=== PATIENT | female | born 1990 | race American Indian/Alaskan Native ===

== ENCOUNTER 2017-07-14 14:34 | Emergency (ER) | payer OTHER ==
[2017-07-14 15:13] VITALS: TEMP 98.4
[2017-07-14] MEDS ORDERED: Sodium Chloride 0.9% 1,000 ML IV ONE (16:07)
[2017-07-14 16:59] LABS: BASO % 0.5 % (0.0-2.0); EOS # 0.1 K/uL (0.0-0.7); EOS % 1.4 % (0.0-4.0); HEMOGLOBIN 12.4 g/dL (11.0-16.0); LYMPH # 3.3 K/uL (1.0-4.3); LYMPH % 37.7 % (20.0-40.0); MEAN CELL VOLUME 80.1 fL (81.0-99.0); MEAN CORPUSCULAR HEMOGLOBIN 28.7 pg (27.0-31.0); MEAN CORPUSCULAR HGB CONC 35.8 g/dL (33.0-37.0); MEAN PLATELET VOLUME 8.5 fL (7.2-11.7); MONO # 0.4 K/uL (0.0-0.8); MONO % 4.9 % (0.0-10.0); NEUT # 4.8 K/uL (1.8-7.0); NEUT % 55.5 % (50.0-75.0); RBC 4.33 Mil/uL (3.80-5.20); RED CELL DISTRIBUTION WIDTH 14.6 % (11.5-14.5); WHITE BLOOD COUNT 8.7 K/uL (4.8-10.8)
[2017-07-14] MEDS ORDERED: Sodium Chloride 0.9% 1,000 ML ONE (17:22)
[2017-07-14 17:23] LABS: ALB/GLOB RATIO 1.1 (1.0-2.1); ALBUMIN 4.2 g/dL (3.5-5.0); ALT/SGPT 24 U/L (9-52); AST/SGOT 23 U/L (14-36); BLOOD UREA NITROGEN 10 mg/dL (7-17); CALCIUM 9.8 mg/dl (8.6-10.4); GFR AFRICAN-AMERICAN > 60; GFR NON-AFRICAN AMERICAN > 60
--- NOTE | 2017-07-14 18:18 | C.PDOC ---
History Of Present Illness 26 yo female with h/o depression c/o "I feel out of it." Notes she feels nausea and has decreased appetite. Pt saw her psychiatrist on 07/12/17 who prescribed her Effexor for the first time for "social anxiety". Pt took her first dose last night at 5pm and shortly after started having the symptoms. Denies abdominal pain, vomiting, fevers, headache, neck pain, sob, rash, difficultly breathing or swallowing. Denies HI/SI. Time Seen by Provider: 07/14/17 15:23 Chief Complaint (Nursing): Medical Clearance History Per: Patient History/Exam Limitations: no limitations Onset/Duration Of Symptoms: Days (last night) Past Medical History Vital Signs: Last Vital Signs Temp 98.4 F 07/14/17 15:08 Pulse 80 07/14/17 19:33 Resp 14 07/14/17 19:33 BP 103/70 07/14/17 19:33 Pulse Ox 100 07/14/17 21:27 - Medical History PMH: Depression (SOCIAL ANXIETY) Family History: States: Unknown Family Hx - Social History Hx Alcohol Use: No Hx Substance Use: No Review Of Systems Except As Marked, All Systems Reviewed And Found Negative. Gastrointestinal: Positive for: Nausea Physical Exam - Physical Exam Appears: Well, Non-toxic, No Acute Distress Skin: Normal Color, Warm, Dry Head: Atraumatic, Normacephalic Eye(s): bilateral: Normal Inspection, EOMI Nose: Normal Oral Mucosa: Moist Neck: Normal, Normal ROM, Supple Chest: Symmetrical Cardiovascular: Rhythm Regular Respiratory: Normal Breath Sounds Gastrointestinal/Abdominal: Normal Exam, Soft, No Tenderness Back: Normal Inspection Extremity: Normal ROM Neurological/Psych: Oriented x3, Normal Speech, Normal Cognition ED Course And Treatment - Laboratory Results Result Diagrams: 07/14/17 16:39 07/14/17 16:39 O2 Sat by Pulse Oximetry: 100 Progress Note: Patient is resting comfortably, in no distress, abdomen is soft, no rebound or guarding, and is tolerating PO. On re-evlauation, pt is tolerating PO. Patient is resting comfortably, in no distress, abdomen is soft, no rebound or guarding. No back pain. Remains afebrile. Discussed with pt and mother that since pt is asymptomatic, no further evaluation will be done at this time. Instructed to return to ER if symtpoms persist or worsen. Case discussed with Dr Lang who instructs pt to stop the medication and f/u out pt. Case discussed with Dr Lin, aileen luon plan and discharge. Disposition - Disposition Disposition: HOME/ ROUTINE Disposition Time: 19:05 Condition: STABLE Additional Instructions: Stop the Effexor. Follow up with your psychiatrist in 1-2 days. Return to ER if symptoms persist or worsen. Instructions: Adverse Drug Reactions, Adult (DC) Forms: Perkle (Togolese) - Clinical Impression Clinical Impression: Adverse drug reaction, Nausea
[2017-07-14 18:43] LABS: HCG,QUALITATIVE URINE NEGATIVE (NEGATIVE)
[2017-07-14 18:45] LABS: SQUAMOUS EPITHIAL < 1 /hpf (0-5); URINE BACTERIA RARE (<OCC); URINE BILIRUBIN NEGATIVE (NEGATIVE); URINE BLOOD 1+ (NEGATIVE); URINE CLARITY Clear (Clear); URINE COLOR Yellow (YELLOW); URINE GLUCOSE (UA) NORMAL (Normal); URINE LEUKOCYTE ESTERASE NEG Leu/uL (Negative); URINE PROTEIN NEGATIVE (NEGATIVE); URINE UROBILINOGEN NORMAL mg/dL (0.2-1.0)
[2017-07-14 19:13] LABS: BARBITURATES, UR NEGATIVE (NEGATIVE); BENZODIAZEPINES, UR NEGATIVE (NEGATIVE); OPIATES, UR NEGATIVE (NEGATIVE); PHENCYCLIDINE, UR NEGATIVE (NEGATIVE)
[2017-07-14 19:34] VITALS: BP 103/70; PULSE 80; RESP 14
[2017-07-14 21:27] VITALS: O2SAT 100
== END 2017-07-14 19:34 | disposition home or self-care (01) ==
LOC: C.ER 14:34
DX: R11.0 Nausea (principal); T43.215A Adverse effect of selective serotonin and norepinephrine reuptake inhibitors, initial encounter
CPT/HCPCS: 80053; 80320; 80324; 80345; 80346; 80349; 80353; 80358; 80361; 81001; 83992; 84703; 85025; 96374; 96375; 99282; C9113; J2405; J7040

== ENCOUNTER 2018-04-17 06:23 | Emergency (ER) | payer SELFPAY ==
[2018-04-17 06:30] VITALS: O2SAT 100
--- NOTE | 2018-04-17 07:34 | C.PDOC ---
History Of Present Illness 27 y/o F c PMHx anxiety p/w panic attack earlier. Calm at present time. was previously on Zoloft 25mg but stopped taking due to lack of insurance and is attempting to get approved for Medicaid. Denies HI, SI, hallucinations. Time Seen by Provider: 04/17/18 07:07 Chief Complaint (Nursing): Anxiety Past Medical History Vital Signs: Last Vital Signs Temp 98.3 F 04/17/18 06:28 Pulse 90 04/17/18 06:28 Resp 16 04/17/18 06:28 BP 118/81 04/17/18 06:28 Pulse Ox 100 04/17/18 06:28 - Medical History PMH: Anxiety (SOCIAL ANXIETY), Depression Family History: States: Unknown Family Hx - Social History Hx Alcohol Use: No Hx Substance Use: No Review Of Systems Except As Marked, All Systems Reviewed And Found Negative. Constitutional: Negative for: Fever Cardiovascular: Negative for: Chest Pain Physical Exam - Physical Exam Additional Physical Exam Comments: Gen: Calm, knitting Head: NC/AT Eyes: No scleral icterus ENT: MMM CV: Regular rate Resp: No tachypnea Extremities: No deformity Skin: No rash Neuro: Alert, no focal deficit ED Course And Treatment O2 Sat by Pulse Oximetry: 100 Medical Decision Making Medical Decision Making: Zoloft administered and prescribed, return to ED at any time for any worsening symptoms. Disposition - Disposition Disposition: HOME/ ROUTINE Disposition Time: 07:34 Condition: STABLE Prescriptions: Sertraline HCl [Zoloft] 25 mg PO DAILY #7 tablet Instructions: Anxiety, Adult (DC) - Clinical Impression Clinical Impression: Panic attack
[2018-04-17 07:45] VITALS: BP 134/90; PULSE 80; RESP 18; TEMP 98.4
== END 2018-04-17 07:57 | disposition home or self-care (01) ==
LOC: C.ER 06:23
DX: F41.0 Panic disorder [episodic paroxysmal anxiety] (principal)